=== PATIENT | male | born 1985 | race Caucasian/White ===

== ENCOUNTER 2023-07-12 08:19 | Outpatient (CLI) | payer BC, OTHER ==
--- NOTE | 2023-07-12 08:57 | Sleep Patient Instructions ---
Sleep Center Visit Summary - Patient Visit Information Reason for Visit: Initial consult for evaluation of sleep disordered breathing and other sleep issues. - Patient Instructions Instructions Attached: Sleep Study Additional Instructions: You will be completing a sleep study, either an in-lab polysomnography (PSG) or home sleep study (HST). You will follow-up in the sleep care office after the sleep study is completed to hear the results and talk about therapy, if needed. You will be called by our office staff to schedule this appointment, but you may contact us with any questions. - Clinic Information Contact: [facility] [address] [place] [address] [email or web address] T: [phone]
--- NOTE | 2023-07-12 09:01 | SLEEP CARE CONSULTATION ---
Information from patient questionnaire entered by Valorie Pickard. I have reviewed and concur with the information entered by Valorie Pickard. This document represents the service I personally performed and the decisions made by me, [place] Johnson ARNP. History of Present Illness Service Date and Time: 07/12/2023 08 Reason for Visit: New patient Accompanied by: Spouse (Valorie) Chief Complaint: reports: Insomnia, Unrefreshed sleep, Frequent awakenings at night Date of Onset: 20+YRS Usual bedtime: 3796-4341 Time it takes to fall asleep: 15-30MINS SOMETIMES 2 HRS Snores at night: Yes Observed to quit breathing while asleep: Yes Sleeps alone due to snoring: No Number of times waking at night: 2-5 Reasons for waking at night: reports: Snoring, Pain, Other (UNKNOWN). denies: Choking, Gasping for air Toss, Turn, or Twitch while sleeping: Yes Recalls having dreams: Yes (some are very vivid dreams) Usually gets out of bed at: 0500 WEEK DAYS [id number] WEEKENDS Feels refreshed in the morning: No Morning headache: Yes (4 days a week; last 20 mins to off/on through day) Sleepy or fatigued during the day: Yes Ever fallen asleep while driving: No Takes day naps: No Dreams during day naps: No Prior sleep studies: Yes Additional HPI information: I had the pleasure of seeing TONY VASQUES today regarding the possibility of him having a sleep disorder. His current complaints are frequent night awakenings, insomnia and unrefreshed sleep. He is accompanied by his who helps with history. 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 He twitches a lot in his sleep and move his whole dima size bed. He snores loudly but he does not stop breathing. He can fall asleep initially but does not feel he can maintain sleep throughout the night. He does not wake up feeling refreshed in mornings, he feels "foggy" in the mornings. 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 Patient is and lives in . Have you smoked in the past 12 months: No Alcohol use: Yes Alcohol amount and frequency: 1 SHOT A MONTH Caffeine use: Yes Caffeine amount and frequency: 2 CUPS IN MORNINGS Family History Family history of sleep disordered breathing: Yes Family Hx Sleep Apnea: Father: Snoring, Sleep apnea - Treated Allergies and Home Medications Known drug allergies: No Drug allergies reviewed: Yes Home medication list reviewed: Yes (as listed) Allergy and home medication list: Allergies No Known Drug Allergies Allergy (Verified 07/12/23 08:23) Home Medications Cetirizine [ZyrTEC] See Rx Instructions .ROUTE .COMPLEX 07/12/23 [History] Escitalopram [Lexapro] See Rx Instructions .ROUTE .COMPLEX 07/12/23 [History] Gabapentin [Neurontin] See Rx Instructions .ROUTE .COMPLEX 07/12/23 [History] Loratadine [Claritin] See Rx Instructions .ROUTE .COMPLEX 07/12/23 [History] Melatonin See Rx Instructions .ROUTE .COMPLEX 07/12/23 [History] Review of Systems Weight gain over past 5 years: 20 in last year Cardiovascular: denies: high blood pressure Gastrointestinal: denies: heartburn Neurological: denies: headaches Psychiatric: reports: anxiety Ear/Nose/Throat: reports: nasal congestion, sinus problems, tonsillectomy, wisdom teeth removed Musculoskeletal: reports: joint pain, neck pain, back pain, joint swelling, muscle pain or cramping, mobility problems Immunologic: reports: itching, allergies to food or environment Physical Exam Vital signs obtained and entered by: VALORIE Solorio MA Blood Pressure: 138/80 (RIGHT ARM) Cuff size: regular Heart Rate: 73 O2 Saturation: 98 Height: 5 ft 7 in Weight: 185 lb 12.8 oz Body Mass Index: 29.0 BMI Classification: Overweight Neck circumference: 16 Nostrils: patent to airflow Mouth and throat: narrow oropharynx Soft palate: long Hard palate: normal Uvula: normal Uvula visualization: 25% Mallampati Class III Tongue: normal in size Tonsils: absent bilaterally Neck: normal w/o lymphadenopathy or thyromegaly Heart: regular rate and rhythm Lungs: clear bilaterally Impression and Plan 1. Suspected Obstructive Sleep Apnea-Hypopnea Syndrome, as suggested by a history of loud and irregular snoring, morning headache, frequent awakening during the night, unrefreshed sleep, and excessive daytime sleepiness. Narrow oropharynx and obesity are common predisposing factors for obstructive sleep apnea-hypopnea syndrome. I recommend proceeding to polysomnography to confirm the diagnosis and to assess severity. If the patient has significant sleep disordered breathing, a manual CPAP titration study will also be performed to find the optimal treatment pressure. I informed the patient of what the sleep studies involve and after some discussion, obtained agreement to proceed. The pathophysiology of obstructive sleep apnea-hypopnea syndrome was discussed with the patient and health risks of cardiovascular and cerebrovascular disease if not treated. Risks of drowsy driving discussed in detail and patient advised to avoid long distance driving and to green chain puller at the first sign of drowsiness. Patient agreed to plan. * Schedule polysomnography. * Avoid long distance driving or driving when feeling sleepy. * Avoid alcohol, sedative and muscle relaxant around bedtime. * Attempt to lose weight. * Review instructions provided by trained office staff on how to prepare for the sleep study. * Return for follow-up after sleep study completed. Counseling Topics: Weight loss health impact Plan: PSG Visit Type: In Office Time Spent with Patient (minutes): 30 Provider Statement: I spent 100% of the Face to Face Visit with the patient with greater than 50% spent counseling the patient and coordination of care.
[2023-07-12 09:09] VITALS: BP 138/80; O2SAT 98
== END 2023-07-12 08:20 | disposition home or self-care (01) ==
LOC: SC 08:19
PROVIDERS: ATTEND Nurse Practitioner Family
DX: G47.00 Insomnia, unspecified (principal); R51.9 Headache, unspecified; G47.10 Hypersomnia, unspecified
CPT/HCPCS: 99203; 99212

== ENCOUNTER 2023-08-31 20:36 | Outpatient (CLI) | payer BC, OTHER | END 2023-08-31 20:37 | disposition home or self-care (01) | LOC: SC 20:36 | PROVIDERS: ATTEND Nurse Practitioner Family | DX: G47.61 Periodic limb movement disorder (principal) | CPT/HCPCS: 95810 ==

== ENCOUNTER 2023-09-20 08:43 | Outpatient (CLI) | payer BC, OTHER ==
--- NOTE | 2023-09-20 09:12 | Sleep Patient Instructions ---
Sleep Center Visit Summary - Patient Visit Information Reason for Visit: Sleep study follow-up - Patient Instructions Instructions Attached: Snoring Tips Prevent Additional Instructions: Your sleep study today was negative for significant sleep disordered breathing. However, you did have elevated respiratory episodes when sleeping on your back. You should avoid sleeping on your back to control these respiratory episodes. You were found to have episodes of snoring. There are different ways to control snoring including weight loss, oral devices made by a dentist or surgical options through ENT specialist. You should not use oral devices that do not fit properly because they can affect your bite. You should also check insurance coverage of oral devices for snoring because they may not be cover well. You may obtain a referral to an ENT specialist through your primary provider. Follow-up as needed. - Clinic Information Contact: [facility] [address] [place] [address] [email or web address] T: [phone]
--- NOTE | 2023-09-20 09:14 | SLEEP CARE CONSULTATION ---
Information from patient questionnaire entered by Valorie Pickard. I have reviewed and concur with the information entered by Valorie Pickard. This document represents the service I personally performed and the decisions made by , [place] Johnson ARNP. History of Present Illness Service Date and Time: 09/20/2023 0843 Initial [place] Sleepiness Scale score: 16 (06/17/23) Current [place] Sleepiness Scale score: 18 (09/20/23) Additional HPI information: TONY VASQUES returns for follow up and results of the recently performed polysomnography. The patient was informed of the following findings: No significant sleep disordered breathing with an average AHI of 4.8 and esthela oxygen saturation of 86%. He had a supine AHI of 14.9 and mild PLMs that did not contribute to sleep fragmentation. I explained the pathophysiology behind obstructive sleep apnea. Patient does not have sleep apnea and was advised how weight gain could increase the risk of developing sleep apnea in the future. I strongly encouraged the patient to lose weight. Patient does not have significant sleep disordered breathing but has elevated AHI in supine position so advised positional therapy. Methods to achieve positional management therapy were discussed; such as, positioning with pillows, wearing a T-shirt with tennis balls sewn into the back or commercially available products. Patient has light to moderate snoring. Snoring can be reduced by weight loss. Weight loss is best achieved with diet consult. Patient instructed to contact PCP for referral. Snoring can also be treated with an oral appliance from a dentist. Advised to check insurance coverage. In addition, an ENT evaluation can be do to see if other treatment is indicated. Patient counseled not drink alcohol less than 4 hours before bedtime as it can increase snoring and apnea. Patient was cautioned about risks of drowsy driving until sleepiness symptoms resolve. Patient denies drowsy driving. Sleep Study - Results Type of Sleep Study: Polysomnography (COMPLETED 08/31/23) Prior sleep studies: Yes Polysomnography/Home Sleep Study results: IMPRESSION: The quality of the study is good. The patient had slightly reduced sleep efficiency due to frequent awakenings during the night. The sleep architecture was relatively normal considering the first-night effect. Respiratory monitoring showed no significant sleep disordered breathing (AHI = 4.8) or hypoxia (esthela oxygen saturation of 86%). The few respiratory events occurred almost exclusively during limited supine sleep (supine AHI = 14.9; non-supine = 4.10). Snore was light to moderate in intensity. There was mild periodic leg movement of sleep not associated with sleep fragmentation. Cardiac rhythm was normal sinus rhythm without significant arrhythmia. No abnormal behavior (parasomnia) observed during the night. CONCLUSIONS and RECOMMENDATIONS: 1. Periodic leg movement (ICD G47.61), mild, treatment may be indicated. Clinical correlation advised. 2. No significant sleep-disordered breathing. However, because the supine AHI was elevated at 14.9, the patient should avoid sleeping supine. Allergies and Home Medications Known drug allergies: No Drug allergies reviewed: Yes Home medication list reviewed: Yes (no changes) Allergy and home medication list: Allergies No Known Drug Allergies Allergy (Verified 09/18/23 08:34) Review of Systems Review of systems same as previous: Yes (NO CHANGE) Physical Exam Vital signs obtained and entered by: VALORIE Solorio MA Blood Pressure: 132/86 (RIGHT ARM) Cuff size: regular Heart Rate: 73 O2 Saturation: 98 Height: 5 ft 7 in Weight: 186 lb 12.8 oz Body Mass Index: 29.2 BMI Classification: Overweight Impression and Plan 1. Snoring but no significant sleep disordered breathing. However, patient does have mild positional apneas with an elevated supine AHI and should avoid sleeping on his back. Patient advised that often weight loss will reduce snoring as well as apnea risk. An oral appliance can also be used for snoring. This would require a dental consultation. Patient cautioned not to use other online appliances as can cause bite issues. Patient is advised to check if insurance will cover. An ENT consult can also be helpful to determine if any other treatment is an option. 2. Periodic limb movement, mild, that did not fragment patients sleep. Periodic limb movement of sleep (PLMS) is characterized by episodes of repetitive limb movements that occur during sleep and usually involve the lower limbs. The etiology is unknown. Caffeine can also aggravate PLMS and should be avoided. Sleep hygiene methods can also improve sleep as well as lifestyle changes such as regular exercise. Patient was advised that no treatment is needed at this time. If symptoms increase, then further evaluation is indicated. 3. Overweight, unspecified. Currently patients BMI is 29.2. Obesity increases the risk of apnea, CPAP pressure requirements and overall health risks especially cardiovascular and diabetes. Thus patient is advised to lose weight. * Avoid sleeping supine * Attempt to lose weight * Avoid alcohol consumption near bedtime * The patient is cautioned about driving until sleepiness is completely resolved. * Return as needed for follow up. Counseling Topics: Weight loss health impact Follow up with Sleep Care in: as needed Visit Type: In Office Time Spent with Patient (minutes): 20 Provider Statement: I spent 100% of the Face to Face Visit with the patient with greater than 50% spent counseling the patient and coordination of care.
[2023-09-20 09:20] VITALS: BP 132/86; O2SAT 98
== END 2023-09-20 08:44 | disposition home or self-care (01) ==
LOC: SC 08:43
PROVIDERS: ATTEND Nurse Practitioner Family
DX: R06.83 Snoring (principal); G47.61 Periodic limb movement disorder; E66.3 Overweight; Z68.29 Body mass index [BMI] 29.0-29.9, adult
CPT/HCPCS: 99212; 99213